=== PATIENT | male | born 1945 | race Caucasian/White ===

== ENCOUNTER 2017-06-25 23:05 | Inpatient (IN) | payer OTHER ==
[~2017-06-25] VITALS: Ht 175.3 cm; Wt 155.0 kg
[2017-06-25 23:42] LABS: BASOPHIL % 0.1 % (0-2); PLATELET COUNT 221 x10^3mcL (130-400)
[2017-06-25 23:44] LABS: RED CELL DISTRIBUTION WIDTH 15.2 % (11.5-14.5)
[2017-06-25 23:47] LABS: CALCIUM 8.3 mg/dL (8.5-10.1); CARBON DIOXIDE 25.2 mmol/L (21-32); CHLORIDE SERUM 110 mmol/L (98-107); CREATININE SERUM 1.6 mg/dL (0.7-1.3); GLUCOSE SERUM 206 mg/dL (74-106); POTASSIUM SERUM 3.9 mmol/L (3.5-5.1); SODIUM SERUM 145 mmol/L (136-145)
[2017-06-25 23:51] LABS: ALKALINE PHOSPHATASE 95 U/L (46-116); ALT/SGPT 19 U/L (16-63); AST/SGOT 12 U/L (15-37); BILIRUBIN TOTAL 0.2 mg/dL (0.20-1.00); TOTAL PROTEIN, SERUM 6.4 g/dL (6.4-8.2)
[2017-06-25 23:52] LABS: ALBUMIN 3.3 g/dL (3.4-5.0)
[2017-06-26] VITALS (7 sets, daily range): BP systolic 126–154; BP diastolic 63–78
[2017-06-26] MEDS ORDERED: GLUCOTROL5 MG PO (01:25)
[2017-06-26] MEDS ORDERED: PRE20 PO (01:26)
[2017-06-26] MEDS ORDERED: ELIQUIS5 MG PO (01:27)
[2017-06-26] MEDS ORDERED: PROAIR RES117 MCG/Ac IH (01:27)
[2017-06-26] MEDS ORDERED: ASPIR LOW81 MG PO (01:27)
[2017-06-26] MEDS ORDERED: CALCITRIOL0.25 MCG PO (01:27)
[2017-06-26] MEDS ORDERED: CARDIZEM CD180 MG PO (01:28)
[2017-06-26] MEDS ORDERED: ADV250/50 INH (01:28)
[2017-06-26] MEDS ORDERED: POTASSIUM CHLO10 MEQ PO (01:29)
[2017-06-26] MEDS ORDERED: ZOCOR40 MG PO (01:29)
[2017-06-26] MEDS ORDERED: HYDRALAZINE HCL25 MG PO (01:29)
[2017-06-26 02:42] LABS: MAGNESIUM 2.5 mg/dL (1.8-2.4); PHOSPHOROUS 3.8 mg/dL (2.5-4.9)
[2017-06-26 02:43] LABS: CHOLESTEROL/HDL RATIO 3.8
[2017-06-26 02:47] LABS: T3 TOTAL 0.78 ng/mL
[2017-06-26 02:51] LABS: FREE T4 1.21 ng/dL (0.76-1.46); FREE THYROXINE INDEX 3.2 ug/dL (1.4-4.5); T4(THYROXINE) 8.5 ug/dL (4.7-13.3)
[2017-06-26 06:15] LABS: PLATELET COUNT 193 x10^3mcL (130-400)
[2017-06-26 06:40] LABS: BASOPHIL % 0 % (0-2); RED CELL DISTRIBUTION WIDTH 15.4 % (11.5-14.5)
[2017-06-26 07:51] LABS: microscopic required? NO
[2017-06-26 07:53] LABS: CALCIUM 8.4 mg/dL (8.5-10.1); CHLORIDE SERUM 108 mmol/L (98-107); CREATININE SERUM 1.5 mg/dL (0.7-1.3); GLUCOSE SERUM 208 mg/dL (74-106); POTASSIUM SERUM 4.4 mmol/L (3.5-5.1); SODIUM SERUM 143 mmol/L (136-145)
[2017-06-26 08:39] LABS: urine erythrocyte NEGATIVE (NEGATIVE)
[2017-06-26 09:27] LABS: AMPHETAMINE QUAL UR NONE DETECTED (NEG <=1000)
[2017-06-27 05:37] VITALS: BP 150/86
[2017-06-27 06:31] LABS: PLATELET COUNT 195 x10^3mcL (130-400)
[2017-06-27 06:44] LABS: BASOPHIL % 0 % (0-2); RED CELL DISTRIBUTION WIDTH 15.1 % (11.5-14.5)
[2017-06-27 06:49] LABS: CALCIUM 8.4 mg/dL (8.5-10.1); CARBON DIOXIDE 29.7 mmol/L (21-32); CHLORIDE SERUM 106 mmol/L (98-107); CREATININE SERUM 1.4 mg/dL (0.7-1.3); GLUCOSE SERUM 180 mg/dL (74-106); MAGNESIUM 2.6 mg/dL (1.8-2.4); POTASSIUM SERUM 4.3 mmol/L (3.5-5.1); SODIUM SERUM 141 mmol/L (136-145)
[2017-06-27 09:29] VITALS: BP 129/62
[2017-06-27 14:01] VITALS: BP 140/73
[2017-06-27 18:39] VITALS: BP 136/72
[2017-06-27 21:42] VITALS: BP 146/75
[2017-06-28 06:19] LABS: CALCIUM 8.4 mg/dL (8.5-10.1); CARBON DIOXIDE 28.1 mmol/L (21-32); CHLORIDE SERUM 105 mmol/L (98-107); CREATININE SERUM 1.5 mg/dL (0.7-1.3); GLUCOSE SERUM 177 mg/dL (74-106); MAGNESIUM 2.4 mg/dL (1.8-2.4); PHOSPHOROUS 4.9 mg/dL (2.5-4.9); POTASSIUM SERUM 4.3 mmol/L (3.5-5.1); SODIUM SERUM 138 mmol/L (136-145)
[2017-06-28 06:41] VITALS: BP 143/79
[2017-06-28 06:46] LABS: PLATELET COUNT 203 x10^3mcL (130-400)
[2017-06-28 06:50] LABS: BASOPHIL % 0 % (0-2); RED CELL DISTRIBUTION WIDTH 15.1 % (11.5-14.5)
[2017-06-28 09:47] VITALS: BP 139/64
[2017-06-28 17:21] VITALS: BP 141/69
[2017-06-28] MEDS ORDERED: FLO4 PO (20:24)
[2017-06-28 21:31] VITALS: BP 149/79
[2017-06-29 05:41] VITALS: BP 153/97
[2017-06-29 07:09] LABS: BASOPHIL % 0.2 % (0-2); PLATELET COUNT 197 x10^3mcL (130-400)
[2017-06-29 07:11] LABS: CALCIUM 8.4 mg/dL (8.5-10.1); CARBON DIOXIDE 30.6 mmol/L (21-32); CHLORIDE SERUM 106 mmol/L (98-107); CREATININE SERUM 1.5 mg/dL (0.7-1.3); GLUCOSE SERUM 102 mg/dL (74-106); POTASSIUM SERUM 3.9 mmol/L (3.5-5.1); RED CELL DISTRIBUTION WIDTH 15.5 % (11.5-14.5); SODIUM SERUM 143 mmol/L (136-145)
[2017-06-29 09:48] VITALS: BP 136/65
[2017-06-29] MEDS ORDERED: COR6 PO (10:29)
[2017-06-29] MEDS ORDERED: ZES10 PO (10:30)
[2017-06-29] MEDS ORDERED: LASIX80 MG PO (10:32)
[2017-06-29] MEDS ORDERED: LEVOFLOXACIN500 M1 PO (10:41)
[2017-06-29 13:50] VITALS: BP 136/65
== END 2017-06-29 14:58 | disposition home or self-care (01) | DRG 190 ==
LOC: ED 23:05 → DU 06-26 00:56 → MU 06-28 06:14
PROVIDERS: Emergency Medicine; Family Medicine; ADMIT Family Medicine Sports Medicine
DX: J44.1 Chronic obstructive pulmonary disease with (acute) exacerbation (principal); I50.43 Acute on chronic combined systolic (congestive) and diastolic (congestive) heart failure; N17.0 Acute kidney failure with tubular necrosis; I13.0 Hypertensive heart and chronic kidney disease with heart failure and stage 1 through stage 4 chronic kidney disease, or unspecified chronic kidney disease; R18.8 Other ascites; Z68.43 Body mass index [BMI] 50.0-59.9, adult; D68.69 Other thrombophilia; E44.0 Moderate protein-calorie malnutrition; I89.0 Lymphedema, not elsewhere classified; N18.3 Chronic kidney disease, stage 3 (moderate); E11.65 Type 2 diabetes mellitus with hyperglycemia; I48.2 Chronic atrial fibrillation; F17.210 Nicotine dependence, cigarettes, uncomplicated; E66.01 Morbid (severe) obesity due to excess calories; Z79.01 Long term (current) use of anticoagulants; Z79.82 Long term (current) use of aspirin; Z79.84 Long term (current) use of oral hypoglycemic drugs
CPT/HCPCS: 36600; 82962; 83880; 84439; 94150; J1940; J1956; J2920; J2930; J7030; J7620; Q0092

== ENCOUNTER 2017-09-08 14:48 | Inpatient (IN) | payer OTHER ==
[~2017-09-08] VITALS: Ht 175.3 cm; Wt 161.1 kg
[~2017-09-08 14:48] MED LIST: ADV250/50 INH; ASPIR LOW81 MG PO; CALCITRIOL0.25 MCG PO; CARDIZEM CD180 MG PO; COR6 PO; ELIQUIS5 MG PO; FLO4 PO; GLUCOTROL5 MG PO; HYDRALAZINE HCL25 MG PO; LASIX80 MG PO; LEVOFLOXACIN500 M1 PO; POTASSIUM CHLO10 MEQ PO; PRE20 PO; PROAIR RES117 MCG/Ac IH; ZES10 PO; ZOCOR40 MG PO
[2017-09-08 16:29] LABS: BASOPHIL % 0.2 % (0-2); PLATELET COUNT 205 x10^3mcL (130-400)
[2017-09-08 16:49] LABS: RED CELL DISTRIBUTION WIDTH 24.4 % (11.5-14.5)
[2017-09-08 16:58] LABS: CALCIUM 8.5 mg/dL (8.5-10.1); CARBON DIOXIDE 27.8 mmol/L (21-32); CHLORIDE SERUM 109 mmol/L (98-107); CREATININE SERUM 1.7 mg/dL (0.7-1.3); GLUCOSE SERUM 106 mg/dL (74-106); POTASSIUM SERUM 4.3 mmol/L (3.5-5.1); SODIUM SERUM 146 mmol/L (136-145)
[2017-09-08 17:03] LABS: ALKALINE PHOSPHATASE 106 U/L (46-116); ALT/SGPT 9 U/L (16-63); AST/SGOT 9 U/L (15-37); BILIRUBIN TOTAL 0.4 mg/dL (0.20-1.00); TOTAL PROTEIN, SERUM 6.8 g/dL (6.4-8.2)
[2017-09-08 17:04] LABS: ALBUMIN 3.1 g/dL (3.4-5.0)
[2017-09-08 17:41] LABS: rbc morphology (normal/abnorm) ABNORMAL (NORMAL)
[2017-09-08 17:42] LABS: target cell (codocyte) 3+
[2017-09-08 19:40] LABS: CHOLESTEROL/HDL RATIO 4.1
[2017-09-08 19:41] LABS: T3 TOTAL 0.87 ng/mL
[2017-09-08 19:48] LABS: FREE T4 1.36 ng/dL (0.76-1.46); FREE THYROXINE INDEX 3.7 ug/dL (1.4-4.5); T4(THYROXINE) 9.5 ug/dL (4.7-13.3)
[2017-09-08] MEDS ORDERED: PROAIR HFA8.5 GM (19:49)
[2017-09-08] MEDS ORDERED: ELIQUIS5 MG PO ×2 (19:49→19:51)
[2017-09-08] MEDS ORDERED: ZESTRIL5 MG PO (19:50)
[2017-09-08] MEDS ORDERED: AMIODARONE HCL200 MG PO (19:50)
[2017-09-08] MEDS ORDERED: FERROUS SULFAT325 M2 PO (19:50)
[2017-09-08] MEDS ORDERED: LEVOTHYROXIN0.025 M2 GT (19:50)
[2017-09-08] MEDS ORDERED: ASPIR 8181 MG PO (19:51)
[2017-09-08] MEDS ORDERED: SIMVASTATIN40 M1 PO (19:51)
[2017-09-08] MEDS ORDERED: JALYN1 CAP PO (19:51)
[2017-09-08] MEDS ORDERED: TOPROL XL25 MG PO (19:52)
[2017-09-08] MEDS ORDERED: HYDRALAZINE HCL25 MG (19:53)
[2017-09-08 21:23] VITALS: BP 158/79
[2017-09-08 21:26] VITALS: Ht 175.3 cm; Wt 161.1 kg
[2017-09-08 21:55] VITALS: BP 158/79
[2017-09-08 22:37] LABS: TOTAL IRON BINDING CAPACITY 346 ug/dL (250-450)
[2017-09-08 22:41] LABS: IRON 33 ug/dL (65-170)
[2017-09-09 05:52] VITALS: BP 142/87
[2017-09-09 06:32] LABS: BASOPHIL % 0.3 % (0-2); PLATELET COUNT 189 x10^3mcL (130-400)
[2017-09-09 06:56] LABS: CALCIUM 8.3 mg/dL (8.5-10.1); CARBON DIOXIDE 27.3 mmol/L (21-32); CHLORIDE SERUM 108 mmol/L (98-107); CREATININE SERUM 1.6 mg/dL (0.7-1.3); GLUCOSE SERUM 149 mg/dL (74-106); MAGNESIUM 2.4 mg/dL (1.8-2.4); POTASSIUM SERUM 4.5 mmol/L (3.5-5.1); SODIUM SERUM 144 mmol/L (136-145)
[2017-09-09 06:57] LABS: RED CELL DISTRIBUTION WIDTH 24.6 % (11.5-14.5)
[2017-09-09 09:40] LABS: microscopic required? NO
[2017-09-09 09:57] LABS: RED BLOOD CELLS 3.84 M/mm3 (4.52-5.90)
[2017-09-09 10:08] VITALS: BP 140/82
[2017-09-09 10:57] LABS: urine erythrocyte NEGATIVE (NEGATIVE)
[2017-09-09 11:07] LABS: AMPHETAMINE QUAL UR NONE DETECTED (NEG <=1000)
[2017-09-09 16:49] VITALS: BP 113/63
[2017-09-09 21:44] VITALS: BP 115/61
[2017-09-10 06:17] VITALS: BP 117/66
[2017-09-10 07:10] LABS: PLATELET COUNT 205 x10^3mcL (130-400)
[2017-09-10 07:20] LABS: CALCIUM 8.6 mg/dL (8.5-10.1); CARBON DIOXIDE 28.8 mmol/L (21-32); CHLORIDE SERUM 106 mmol/L (98-107); CREATININE SERUM 1.5 mg/dL (0.7-1.3); GLUCOSE SERUM 158 mg/dL (74-106); MAGNESIUM 2.4 mg/dL (1.8-2.4); PHOSPHOROUS 4.3 mg/dL (2.5-4.9); POTASSIUM SERUM 4.4 mmol/L (3.5-5.1); SODIUM SERUM 140 mmol/L (136-145)
[2017-09-10 07:27] LABS: BASOPHIL % 0 % (0-2); RED CELL DISTRIBUTION WIDTH 24.7 % (11.5-14.5)
[2017-09-10 10:27] VITALS: BP 122/65
[2017-09-10] MEDS ORDERED: FER300 PO (14:03)
[2017-09-10] MEDS ORDERED: PREDNISONE20 MG PO (14:16)
[2017-09-10 15:11] VITALS: BP 122/65
== END 2017-09-10 16:59 | disposition home health service (06) | DRG 291 ==
LOC: ED 14:48 → DU 17:37 → MU 09-10 07:43
PROVIDERS: Emergency Medicine; Student in an Organized Health Care Education/Training Program
DX: I13.0 Hypertensive heart and chronic kidney disease with heart failure and stage 1 through stage 4 chronic kidney disease, or unspecified chronic kidney disease (principal); I50.43 Acute on chronic combined systolic (congestive) and diastolic (congestive) heart failure; N17.0 Acute kidney failure with tubular necrosis; E43 Unspecified severe protein-calorie malnutrition; Z68.43 Body mass index [BMI] 50.0-59.9, adult; E87.0 Hyperosmolality and hypernatremia; E11.22 Type 2 diabetes mellitus with diabetic chronic kidney disease; N18.3 Chronic kidney disease, stage 3 (moderate); E11.51 Type 2 diabetes mellitus with diabetic peripheral angiopathy without gangrene; I48.2 Chronic atrial fibrillation; I89.0 Lymphedema, not elsewhere classified; D63.1 Anemia in chronic kidney disease; N40.0 Benign prostatic hyperplasia without lower urinary tract symptoms; E03.9 Hypothyroidism, unspecified; E78.5 Hyperlipidemia, unspecified; E66.01 Morbid (severe) obesity due to excess calories; F17.210 Nicotine dependence, cigarettes, uncomplicated; Z79.01 Long term (current) use of anticoagulants; Z79.82 Long term (current) use of aspirin; Z79.84 Long term (current) use of oral hypoglycemic drugs
CPT/HCPCS: 82962; 83880; 84439; 94150; J1940; J2920; J2930; J7030; J7620; Q0092